=== PATIENT | female | born 1960 | race Caucasian/White ===

== ENCOUNTER 2020-03-07 12:31 | Emergency (ER) | payer BC, SELFPAY ==
--- NOTE | ~2020-03-07 | XR_ITS ---
XR foot RT min 3V DATE: 03/07/2020 12:54 INDICATION: Injury yesterday. Right foot pain. TECHNIQUE: 4 views COMPARISON: None FINDINGS: There is a thin linear cortical avulsion fracture from the distal lateral aspect of the leon caneus, with overlying soft tissue swelling. No other fracture or dislocation, periosteal reaction or bone destruction is detected. Plantar calcaneal enthesopathy. IMPRESSION: Linear cortical avulsion fracture from the distal lateral aspect of the calcaneus with ov erlying soft tissue swelling Plantar calcaneal enthesopathy Reviewed, dictated and finalized at location A. IMPRESSION: Linear cortical avulsion fracture from the distal lateral aspect of the calcaneus with overlying soft tissue swelling Plantar calcaneal enthesopathy
[2020-03-07 12:43] VITALS: BP 136/63; PULSE 85; RESP 16; TEMP 36.8; O2SAT 98
--- NOTE | 2020-03-07 12:43 | ED.LOWEXIN ---
HPI - Extremity Injury (Lower) General Chief Complaint: Extremity Injury, Lower Stated Complaint: injury right foot Time Seen by Provider: 03/07/20 12:43 Source: patient and RN notes reviewed History of Present Illness HPI Narrative: Patient is a 60-year-old female who presents the urgent care with complaints of right foot pain and swelling. Patient states that yesterday she fell down some steps, landing on the lateral aspect of the right foot. Patient states she has elevated the foot and used ice. Patient has been using her at home crutches to avoid weightbearing activity. Denies any other injuries or hitting her head during the incident. No other acute complaints. No acute distress noted. Patient read the plan of care. Related Data Allergies Allergy/AdvReac Type Severity Reaction Status Date / Time lisinopril AdvReac Mild Cough Verified 08/21/19 16:55 Review of Systems Review of Systems: Narrative: CONSTITUTIONAL: Denies fever, chills, or sweats. EYES: Denies visual changes, redness, or discharge. ENT: Denies rhinorrhea, congestion, sore throat, or otalgia. CARDIOVASCULAR: Denies chest pain, palpitations, or edema. RESPIRATORY: Denies cough or dyspnea. GASTROINTESTINAL: Denies abdominal pain, nausea, vomiting, or diarrhea. GENITOURINARY: Denies dysuria or hematuria. SKIN: Denies rash or itching. MUSCULOSKELETAL: Reports of right foot pain and swelling NEUROLOGIC: Denies headache, numbness, or weakness. All other systems reviewed are negative, except as documented in HPI. [facility] Past Medical History Medical History (Updated 03/07/20 @ 13:34 by ANDRES Smith) Benign hypertension without CHF Cardiac murmur Tobacco use disorder Family History Family History (Updated 12/10/18 @ 15:45 by DOCTOR UNKNOWN) Mother Patient's mother is in good health Father Patient's father is , Onset Age: 42 Sibling Patient's sister is in good health Patient's brother is in good health Social History Social History (Updated 08/21/19 @ 16:56 by Eva Whalen) Years smoked: 40 Smoking status: Heavy tobacco smoker Tobacco type: cigarettes Second hand tobacco smoke exposure: Yes Alcohol intake: current Drinks per week: 21 Substance use: never Substance use type: does not use Gender identity (if verbalized by the patient): Female Comments At the time of my signature, I reviewed and agree with the nursing past medical, surgical, social, and family history. There is no relevant family history pertinent to the patient complaint. Exam Narrative: Exam Narrative: GENERAL: This is a well-nourished, well-developed patient, in no apparent distress. HEAD: normocephalic, atraumatic. EYES: PERRL. Sclera clear/white. Vision is grossly intact. EARS: External ears normal NOSE: External nose normal with no obvious nasal discharge, nares without redness, no rhinorrhea. THROAT: Mucous membranes moist NECK: Neck supple SKIN: warm, intact with no suspicious lesions or rash, good texture and turgor. NEURO: awake, alert, and oriented to person, place and time. There were no obvious focal neurologic abnormalities. EXTREMITIES: Moderate edema and ecchymosis noted to the lateral dorsal aspect of the right foot with mild to moderate tenderness over the lateral right foot, anterior calcaneal region. Positive strong right pedal pulse with capillary refill less than 2 seconds. Course Vital Signs Vital signs: Vital Signs Temperature 98.3 F 03/07/20 12:43 Pulse Rate 85 03/07/20 12:43 Respiratory Rate 16 03/07/20 12:43 Blood Pressure 136/63 03/07/20 12:43 Pulse Oximetry 98 03/07/20 12:43 Temperature 98.3 F 03/07/20 12:43 Pulse Rate 85 03/07/20 12:43 Respiratory Rate 16 03/07/20 12:43 Blood Pressure 136/63 03/07/20 12:43 Pulse Oximetry 98 03/07/20 12:43 Reviewed Procedures Orthopedic Splinting/Casting Injury #1: Side: right OCL: short leg
== END 2020-03-07 13:52 | disposition home or self-care (01) ==
PROVIDERS: Emergency Provider Nurse Practitioner Family
DX: S92.001A Unspecified fracture of right calcaneus, initial encounter for closed fracture (principal); I10 Essential (primary) hypertension; F17.210 Nicotine dependence, cigarettes, uncomplicated; W10.9XXA Fall (on) (from) unspecified stairs and steps, initial encounter
CPT/HCPCS: 29515; 73630; 99214; G0463

== ENCOUNTER 2020-04-19 13:10 | Outpatient (CLI) | payer BC, SELFPAY ==
--- NOTE | ~2020-04-19 | MM_ITS ---
EXAMINATION: MM diagnostic cristiano BI w paulie HISTORY: Follow-up left breast mass TECHNIQUE: Additional 3-D tomosynthesis images of the breasts were performed and synthetic 2-D images were generated. CAD analysis was submitted and interpreted. COMPARISON: 12/17/2018 BREAST PARENCHYMAL COMPOSITION: Breast composed of scattered areas of fibroglandular density FINDINGS: The breasts are stable. No new masses, calcifications or architectural distortion. Left jesus ast asymmetry in the upper outer quadrant of the left breast is stable. IMPRESSION: 1. Stable asymmetry left breast. Follow-up left breast ultrasound recommended to assess stability. BI-RADS CATEGORY 0 - INCOMPLETE STUDY, NEED ADDITIONAL IMAGING EVALUATION. Reviewed, dictated and finalized at location A. IMPRESSION: 1. Stable asymmetry left breast. Follow-up left breast ultrasound recommended t o assess stability. BI-RADS CATEGORY 0 - INCOMPLETE STUDY, NEED ADDITIONAL IMAGING EVALUATION.
== END 2020-04-19 13:11 | disposition home or self-care (01) ==
LOC: ANHIMG 13:13
PROVIDERS: PCP Family Medicine; Visit Provider Family Medicine
DX: R92.8 Other abnormal and inconclusive findings on diagnostic imaging of breast (principal)
CPT/HCPCS: 77062; 77066; G0279

== ENCOUNTER 2020-04-20 14:02 | Outpatient (CLI) | payer BC, SELFPAY ==
--- NOTE | ~2020-04-20 | US_ITS ---
EXAMINATION: US art doppler w press LE JORGITO DATE: 04/20/2020 15:05 INDICATION: Peripheral vascular disease, unspecified TECHNIQUE: Segmental pressures and plethysmographic and Doppler waveforms of the brachial and lower e xtremity arteries were obtained. COMPARISON: None. FINDINGS: Right and left brachial artery pressures of 126 mm Hg and 136 mm Hg, respectively, are concordant (no rmal difference <= 30 mmHg). The right high-thigh pressure index is 0.33 (normal > 1.2). The right ankle-brachial index (ERIKA) is 0 .27 (normal >= 0.9-1.0). The right great toe-brachial index (TBI) is 0.46 (normal >= 0.65). The right lower extremity segmental pressure gradients are normal (normal gradients <= 20-30 mmHg between stacy cent levels on the same leg or the same levels on the two legs). Arterial Doppler waveforms are bipha sic. The left high-thigh pressure index is 0.32. The left ERIKA is 0.26. The left TBI is 0.51. The left lowe r extremity segmental pressure gradients are normal. Arterial Doppler waveforms are biphasic. IMPRESSION: 1. Severe arterial occlusive disease. Reviewed, dictated and finalized at location A.
== END 2020-04-20 14:03 | disposition home or self-care (01) ==
LOC: ANHIMG 14:03
PROVIDERS: PCP Family Medicine; Visit Provider Family Medicine
DX: I73.9 Peripheral vascular disease, unspecified (principal); M48.062 Spinal stenosis, lumbar region with neurogenic claudication
CPT/HCPCS: 93923

== ENCOUNTER → 2022-06-08 11:03 | Outpatient (CLI) | payer BC, SELFPAY ==
--- NOTE | ~2022-06-08 | DEXA_ITS ---
Bone Density Report Name: KORINA VELASQUEZ Age: 62 Sex: Female Ethnicity: White Date of : 1960 Indication: postmenopausal; screening for osteoporosis; Referring Provider: DOV CUEVAS Study: Bone densitometry was performed. Exam Date: June 08, 2022 Accession number: [id number] Bone Density: Region BMD T-score Z-score Classification AP Spine (L1-L4) 0.964 -0.8 0.9 Normal Femoral Neck (Left) 0.682 -1.5 -0.1 Osteopenia Total Hip (Left) 0.820 -1.0 0.1 Normal Femoral Neck (Right) 0.851 0.0 1.4 Normal Total Hip (Right) 0.847 -0.8 0.3 Normal Total Hip Mean 0.834 -0.9 0.2 Normal World Health Organization criteria for BMD impression classify patients as: Normal (T-score at or above -1.0), Osteopenia (T-score between -1.0 and -2.5), or Osteoporosis (T-score at or below -2.5). 10-year Fracture Risk(1): Major Osteoporotic Fracture 10% Hip Fracture 1.3% Reported Risk Factors: [place] (), Neck BMD=0.682, BMI=26.7, alcohol use (1) FRAX(R) Version 3.08. Fracture probability calculated for an untreated patient. Fracture probability may be lower if the patient has received treatment. Clinical Information Provided by Patient: Has 3 or more alcoholic drinks per day Patient maximum height was 64.0 Menopause Age: 49 Drinks caffeinated beverages Onset of menses at age 13 Number of children 2 Impression: The patient has low bone mass, based on the Left Femoral Neck T-score. The patient has an estimated ten-year risk of hip fracture of 1.3% and an estimated ten-year risk of major fracture of 10%, based on the WHO FRAX algorithm. The patient has risk factors, including: excessive alcohol use. Discussion: BONE DENSITY IS LOW AT ONE OR MORE SKELETAL SITES. This patient's lowest T-score is low at one or more skeletal sites. It meets the World Health Organization's (WHO) criteria for ?low bone mass? (T-score between -1.0 and -2.5). The patient's 10-year risk of fracture as calculated by FRAX is less than the threshold where pharmacological therapy is recommended by the National Osteoporosis Foundation (NOF). However, all treatment decisions require clinical judgment and consideration of individual patient factors, including patient preferences, comorbidities, previous drug use, risk factors not captured in the FRAX model (e.g., frailty, falls, vitamin D deficiency, increased bone turnover, interval significant decline in bone density) and possible under or overestimation of fracture risk by FRAX. The patient should follow a healthful lifestyle (good nutrition with adequate calcium and vitamin D, and appropriate weight-bearing exercise). Follow-Up: Consider repeating this study in 2 to 3 years to reassess this patient's status, or sooner if there is some new clinical indication. Reported by
--- NOTE | ~2022-06-08 | MM_ITS ---
EXAMINATION: MM screening cristiano BI w paulie HISTORY: Screening mammogram TECHNIQUE: Craniocaudal and mediolateral oblique 3-D tomosynthesis images were obtained and synthetic 2-D images were generated. CAD analysis was submitted and interpreted. COMPARISON: 04/19/2020 bilateral diagnostic mammography 07/07/2019 limited left breast ultrasound 01/01/2019 diagnostic left mammogram and limited left breast ultrasound 12/17/2018 bilateral screening mammogram BREAST PARENCHYMAL COMPOSITION: There are scattered areas of fibroglandular density. FINDINGS: A biopsy marker on the right; history of prior benign right breast biopsy. There is no evid ence of suspicious mass, calcification, or architectural distortion to suggest malignancy in either b reast. There has been no suspicious interval change. IMPRESSION: 1. No mammographic evidence of malignancy. 2. Recommend routine screening mammography in one year. BI-RADS Category 1: Negative Reviewed, dictated and finalized at location A.
== END ==
PROVIDERS: PCP Family Medicine; Visit Provider Nurse Practitioner Gerontology
DX: Z12.31 Encounter for screening mammogram for malignant neoplasm of breast (principal); Z78.0 Asymptomatic menopausal state; M85.852 Other specified disorders of bone density and structure, left thigh
CPT/HCPCS: 77063; 77067; 77080

== ENCOUNTER 2023-06-28 08:29 | Outpatient (CLI) | payer BC, SELFPAY ==
--- NOTE | ~2023-06-28 | CT_ITS ---
EXAMINATION: CT lung screening DATE: 06/28/2023 08:52 INDICATION: Personal history of tobacco dependence TECHNIQUE: Computed tomography (CT) of the chest was performed without intravenous contrast. The dose -length product was 74.66 mGy-cm. Automated exposure control and iterative reconstruction technique w ere employed. COMPARISON: None FINDINGS: Heart size is normal. No significant pleural or pericardial effusion. No thoracic lymphaden opathy. Upper abdomen is unremarkable. No acute osseous abnormality. Calcified granuloma right upper lobe. There are a few small 1-2 mm nodules in the upper lobes, likely benign. No focal airspace conso lidation. No pneumothorax. No endobronchial lesions. IMPRESSION: 1. Lung-RADS category 2: Benign appearance or behavior. Continue annual screening with noncontrast lo w-dose chest CT in 12 months. Reviewed, dictated and finalized at location L. IMPRESSION: 1. Lung-RADS category 2: Benign appearance or behavior. Continue annual screeni ng with noncontrast low-dose chest CT in 12 months.
== END 2023-06-28 08:30 | disposition home or self-care (01) ==
PROVIDERS: PCP Family Medicine; Visit Provider Physician Assistant
DX: Z12.2 Encounter for screening for malignant neoplasm of respiratory organs (principal); Z87.891 Personal history of nicotine dependence
CPT/HCPCS: 71271

== ENCOUNTER → 2023-09-13 10:25 | Outpatient (CLI) | payer BC, SELFPAY ==
--- NOTE | ~2023-09-13 | MM_ITS ---
EXAMINATION: MM screening cristiano BI w paulie HISTORY: Screening TECHNIQUE: Craniocaudal and mediolateral oblique 3-D tomosynthesis images were obtained and synthetic 2-D images were generated. CAD analysis was submitted and interpreted. COMPARISON: Comparison to multiple prior studies sequentially, with oldest reviewed study dated 12/17. BREAST PARENCHYMAL COMPOSITION: Breast composed of scattered areas of fibroglandular density FINDINGS: There is no evidence of suspicious mass, calcification, or architectural distortion to sugg est malignancy in either breast. There has been no suspicious interval change. IMPRESSION: 1. No mammographic evidence of malignancy. 2. Recommend routine screening mammography in one year. BI-RADS Category 1: Negative Reviewed, dictated and finalized at location A. 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
== END ==
PROVIDERS: PCP Family Medicine; Visit Provider Physician Assistant
DX: Z12.31 Encounter for screening mammogram for malignant neoplasm of breast (principal)
CPT/HCPCS: 77063; 77067

== ENCOUNTER 2024-12-08 14:19 | Outpatient (CLI) | payer OTHER, SELFPAY ==
--- NOTE | ~2024-12-08 | CT_ITS ---
EXAMINATION:CT lung screening DATE: 12/08/2024 14:41 INDICATION: Personal history of nicotine dependence. Smoker who quit 4 years ago with 40 pack year hi story. TECHNIQUE: Computed tomography (CT) of the chest was performed without intravenous contrast. Automate d exposure control and iterative reconstruction technique were employed. The dose-length product (DLP ) was 78.75 mGy-cm. COMPARISON: Chest CT 06/28/2023 FINDINGS: There is mild emphysema. There is mild scarring in paraspinal right lower lobe. A calcified right lung nodule is consistent with old granulomatous disease. No pleural effusion. The heart size is normal. There are coronary artery calcifications. No pericardial effusion. There is diffuse hepati c steatosis. There is mild thoracic spondylosis. IMPRESSION: 1. Lung-RADS category 2: Benign appearance or behavior. Continue annual screening with noncontrast lo w-dose chest CT in 12 months. Reviewed, dictated and finalized at location B. IMPRESSION: 1. Lung-RADS category 2: Benign appearance or behavior. Continue annual screeni ng with noncontrast low-dose chest CT in 12 months.
--- OUTSIDE RECORDS SUMMARY | 2024-12-08 16:42 | XMS_ITS | Referral Summary ---
Author Organization [facility] [address] Address [address] [place] [address] Care Team Providers Care Engineer Process Name Role Phone Tori Bolom MD Primary Care Provider Allergies No known active allergies Medications losartan (COZAAR) 50 mg tablet Take 1 tablet by mouth daily 03/01/2020 Active rosuvastatin (CRESTOR) 5 mg tablet Take 5 mg by mouth daily Active clopidogreL (PLAVIX) 75 mg tablet Take 1 tablet (75 mg total) by mouth daily 30 tablet 11 05/06/2020 Active aspirin 325 mg tablet Take 1 tablet (325 mg total) by mouth daily 30 tablet 11 05/06/2020 Active Active Problems Problem Noted Date Diagnosed Date PVD (peripheral vascular disease) 05/03/2020 Overview (05/03/2020): Added automatically from request for surgery [id number] Social History Tobacco Use Types Packs/Day Years Used Date Smoking Tobacco: Every Day Cigarettes Smokeless Tobacco: Never Tobacco Cessation:Ready to Q uit: Yes; Counseling Given: Yes Alcohol Use Standard Drinks/Week Comments Yes 0 (1 standard drink = 0.6 oz pur e alcohol) occassional Personal Safety Answer Date Recorded Getting School Help Needed Not on file 12/15 Comments No Sex and Gender Information Value Date Recorded Sex Assigned at Not on file 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 Gender Identity Not on file Sexual Orientation Not on file Last Filed Vital Signs Vital Sign Reading Time Taken Comments Blood Pressure 111/61 05/06/2020 5:25 PM CDT Pulse 81 05/06/2020 5:25 PM CDT Temperature 36.7 C (98 F) 05/06/2020 7:38 AM CDT Respiratory Rate 13 05/06/2020 5:25 PM CDT Oxygen Saturation 96% 05/06/2020 5:25 PM CDT Inhaled Oxygen Concentration - - Weight 63.3 kg (139 lb 8 oz) 05/06/2020 7:38 AM CDT Height 162.6 cm (5' 4 ) 05/06/2020 7:38 AM CDT Body Mass Index 23.95 05/06/2020 7:38 AM CDT Plan of Treatment Not on file Medical Devices Implanted Type Area Scheduling Coordinator Device Identifier Shelf Expiration Date Model / Serial / Lot [employer] Peripheral Vascular [id number] Lifestream 10mm 38mm 80cm Balloon Expandable Low Profile Cover - [id number] Implanted:Qty: 1 on 05/06/2020 by Justin Mills MD at [facility] [employer] 05/31/2020 [id number] / / [id number] Insurance [facility] Advance Directives For more information, please contact: [phone] * Full Code (Latest Code Status on File) Date Activated Date Inactivated Comments 05/06/2020 12:13 PM 05/06/2020 11:44 PM Care Teams Engineer Process Relationship Specialty Start Date End Date Tori Bloom MD [address] [facility] [address] [place] [address] PCP - General Family Medicine 08/26/19
--- OUTSIDE RECORDS SUMMARY | 2024-12-08 16:42 | XMS_ITS | Clinical Summary ---
Author Organization [facility] [address] Address [address] [place] [address] Care Team Providers Care Fine Patcher Name Role Phone Tori Bloom MD Primary Care Provider Allergies No known [...] (05/03/2020): Added automatically from request for surgery [id number] Surgical History Surgery Date Site/Laterality Comments APPENDECTOMY Medical History Medical History Date Comments Numbness in feet Peripheral vascular disease Hypertension Family History Medical History Relation Name Comments No Known Problems Father No Known Problems Mother Relation Name Status Comments Father Mother Alive Social History Tobacco Use Types Packs/Day Years [...] on file 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 * Full Code (Latest Code Status on File) Date Activated Date Inactivated Comments 05/06/2020 12:13 PM 05/06/2020 11:44 PM Care Teams Fine Patcher Relationship Specialty Start Date End Date Tori Bloom MD [address] [facility] [address] [facility] [address] [place] [id number] PCP - General Family Medicine 08/26/19
--- OUTSIDE RECORDS SUMMARY | 2024-12-08 16:42 | XMS_ITS | Referral Summary ---
Author Organization [facility] Address [address] [place] [address] Care Team Providers Care Agriculture Research Director Name Role Phone Roel Manzano MD Unavailable [phone] Pcp, Lyndsey Muñoz Primary Care Provider Unav ailable Source Comments [facility],non-owned Affiliates and Associated Physician Practices is amultiple site organization consisting of ambulatory clinics and hospital sitesin [place], [place], [place] and [place]. This disclosure is being madepursuant to the Care Everywhere program and may not contain all information available regarding this patient. Last updated 18.[facility] Allergies No known active allergies Medications * Be aware that medications may not be up to date on this document. Alwaysverify current medications with the patient. Medication Sig Dispensed Refills Start Date End Date Status amoxicillin (AMOXIL) 500 MG capsule Take 1 Cap by mouth 3 times daily 30 Cap 04/19/2017 Active Active Problems No known active problems Resolved Problems Problem Noted Date Diagnosed Date Resolved Date Screening for cervical cancer 02/09/2009 03/11/2012 Overview (02/09/2009): 06/15/08 WNL Other screening mammogram 02/09/2009 Overview (02/09/2009): 07/24/08 NEG Social History Tobacco Use Types Packs/Day Years Used Date Smoking Tobacco: Every Day Cigarettes 1 30 Tobacco Cessation:Ready to Q uit: No; Counseling Given: Yes Alcohol Use Standard Drinks/Week Comments Yes 10 (1 standard drink = 0.6 oz pu re alcohol) weekends Sex and Gender Information Value Date Recorded Sex Assigned at Not on file Gender Identity Not on file Sexual Orientation Not on file Last Filed Vital Signs Vital Sign Reading Time Taken Comments Blood Pressure 144/84 04/19/2017 2:04 PM CDT Pulse 68 04/19/2017 2:04 PM CDT Temperature 36.8 C (98.3 F) 04/19/2017 2:04 PM CDT Respiratory Rate - - Oxygen Saturation 97% 01/17/2010 11:21 AM CDT Inhaled Oxygen Concentration - - Weight 62.6 kg (138 lb) 04/19/2017 2:04 PM CDT Height 165.1 cm (5' 5 ) 04/19/2017 2:04 PM CDT Body Mass Index 22.96 04/19/2017 2:04 PM CDT Plan of Treatment Not on file Goals Goal Patient Goal Type Associated Problems Recent Progress Patient-Stated? Author Quit smoking / using tobacco Lifestyle Not on track(2016 2:06 PM CDT) Alicja Schaefer MA Note: Where can I go for support and more information? There are many ways to quit smoking. Some may work better for you than others. Your caregiver can help you find the best plan to quit. Smokefree.gov Phone: 0-944-WVGS-NOW ( ) www.smokefree.gov [employer] Phone: Phone: www.lung.org Instant Rewards of Quitting When you smoke, the chemicals in tobacco reach your lungs quickly every time you inhale. Your blood then carries the toxins to every organ in your body. There is no safe amount of cigarette smoke. After you quit, your body begins to heal within 20 minutes of your last cigarette, and the nicotine leaves your body within three days. As your body starts to repair itself, you may feel worse instead of better. Withdrawal can be difficult, but this is a sign that your body is healing. -Taken from www.Smokefree.gov Long?term Rewards of Quitting Tobacco use in the [place] causes about 443,000 deaths each year, or nearly one in every five deaths. Quitting can help you add years to your life. Smokers on average 13 years earlier than non-smokers. Take control of your health by quitting (and staying quit). Over time, you will greatly lower your risk of from lung cancer and other diseases, such as: Heart disease Stroke Chronic bronchitis Emphysema At least 13 other kinds of cancer -Taken from www.Smokefree.gov Tips if you slip Don't be discouraged if you slip up and smoke one or two cigarettes. One cigarette is better than an entire pack. But don't use it as excuse to start smoking again because it's a slippery slope. Don't be too hard on yourself. One slip up doesn't make you a failure. It doesn't mean you can't quit for good. Don't be too easy on yourself either. If you slip up don't say Well I've blown it. I might as well smoke the rest of this pack . It's important to get back on the non-smoking track right away. Remember your goal is no cigarettes--not even one puff. Feel good about all the time you went without smoking. Try to learn how to make your coping skills better. Identify the trigger. Exactly what was it that made you smoke? Be aware of that trigger. Decide now how you will cope with it when it comes up again. Learn from your experience. What has helped you the most to keep from smoking? Make sure to do that on your next try. Are you using a medicine to help you quit? Don't stop using your medicine after only one or two cigarettes. Stay with it. It will help you get back on track. See your provider or another health professional. He or she can help motivate you to quit smoking. -Taken from www.smokefree.gov Procedures Procedure Name Priority Date/Time Associated Diagnosis Comments PAP IG LB CT+GC+HPV HR Routine 03/11/2012 4:55 PM CDT Screen for STD (sexually transmitted disease) Routine gynecological examination Special screening examination for other specified chlamydial diseases Special screening examination for human papillomavirus (HPV) from Last 3 Months or Most Recently Relevant to Health Maintenance Results * PAP SMEAR IG CT+GC HPV HR (PO REF LAB) (03/11/2012 4:55 PM CDT) Diagnosis [facility] INSURANCE BILL Comment:NEGATIVE FOR INTRAEP ITHELIAL LESION AND MALIGNANCY. Specimen Adequacy [facility] INSURANCE BILL Comment: Satisfactory for evaluation. Endocervical and/or squamous metaplastic cells (endocervical component) are present. Clinician Provided ICD9 [facility] INSURANCE BILL Comment: V70.0 ; Routine general medical examination at health care facility V74.5 ; Screening examination for venereal disease 625.9 ; Unspecified symptom associated with female genital organs V72.31 ; Routine gynecological examination V73.88 ; Special screening examination for other specified chlamydial diseases V73.81 ; Special screening examination, human papillomavirus [HPV] Performed by [facility] INSURANCE BILL Comment:Emily Hatfield, Cytot echnologist (ASCP) Comment . [facility] INSURANCE BILL Note [facility] INSURANCE BILL Comment: The Pap smear is a screening test designed to aid in the detection of premalignant and malignant conditions of the uterine cervix. It is not a diagnostic procedure and should not be used as the sole means of detecting cervical cancer. Both false-positive and false-negative reports do occur. . IGLBP CPT Code Automation [facility] INSURANCE BILL Comment: This liquid based ThinPrep(R) pap test was screened with the use of an image guided system. Human papillomavirus High Risk Negative Negative [facility] INSURANCE BILL Comment: This high-risk HPV test detects thirteen high-risk types (16/18/31/33/35/39/45/51/52/56/58/59/68) without differentiation. . Chlamydia trachomatis BRAD Negative Negative [facility] INSURANCE BILL GC DNA Probe Negative Negative [facility] INSURANCE BILL MICROSCOPIC CYTOLOGIC EXAMINATION OF SMEAR OF SPECIMEN FROM FEMALE GENITAL TRACT PREPARED USING PAPANICOLAOU TECHNIQUE / Unknown 03/11/2012 4:55 PM CDT 03/12/2012 1:09 AM CDT Narrative [facility] INSURANCE BILL - 03/14/2012 8:06 PM CDT No. of containers..01 CYTYC Thin Prep Vial Resulting Agency Comment [address] [phone] Claribel Wagner APRN-[employer] LAB - PATHOLOGY/C YTOLOGY ORDERABLES [facility] INSURANCE BILL from Last 3 Months or Most Recently Relevant to Health Maintenance Advance Directives Documents on File Type Date Recorded Patient Grievance And Appeals Specialist Expl anation Adv Directive/Living Will/POA 11/22/2009 Adv Directive/Living Will/POA 11/22/2009 Care Teams Agriculture Research Director Relationship Specialty Start [place] [id number] [id number] PCP - OBDON 02/09/09 PcpLyndsey PCP - General 04/27/23
--- OUTSIDE RECORDS SUMMARY | 2024-12-08 16:42 | XMS_ITS | CONTINUITY OF CARE DOCUMENT ---
Author Name cheryl luna Address Unknown Organization [facility] Address [address] [facility] [address] [place] [address] Phone [phone] Care Team Providers [employer] Coordinator Name Role Phone Lina ROBERTS, Justin Unavailable [phone] SOLE ALCARAZ MD Unavailable [phone] SOLE ALCARAZ MD Unavailable [phone] PROBLEMS Condition Status Date Provider Notes Family History of CVA or Stroke: active Jose Mills MD Cardiology examination active Justin Mills MD PVD: Aorto/Iliac stenting active Justin monson MD Tobacco abuse - quit active Justin Mills MD HTN essential active Justin Mills MD Leg pain active Justin Mills MD Hyperlipidemia active uJstin Mills MD Chest pain active Justin Mills MD ENCOUNTERS Date Type Provider Location Encounter Diag nosis - In-person encounter Office Visit Justin Mills MD [facility] Tobacco abuse - quitChest pain - In-person encounter Office Visit Justin Mills MD [facility] Cardiology examination - In-person encounter Office [place] [facility] - [place]person encounter Office Visit Justin Mills MD [facility] PVD: Aorto/Iliac stentingHyperlipidemia - In-person encounter Office Visit Justin Mills MD [facility] Cardiology examination - In-person encounter Office Visit Justin Mills MD [facility] - In-person encounter Office Visit Justin Mills MD [facility] - In-person encounter Office Visit Justin Mills MD [facility] Family History of CVA or Stroke:PVD: Aorto/Iliac stentingTobacco abuse - quitHTN essentialLeg pain VITAL SIGNS Date Observation Value Provider Body Mass Index (Ratio) 27.29 kg/m2 Tr Mills MD blood pressure, diastolic 83 mm[Hg] Payal Willis blood pressure, systolic 146 mm[Hg] Duyen Willis oxygen saturation, oximetry 95 % Faby Willis [facility] E[facility]M 12 [facility] weight E&M 159 [lb_av] [facility] height E&M 64 [in_i] [facility] blood pressure, cuff size regular An yudelka Willis Body Mass Index (Ratio) 26.09 kg/m2 Tr Mills MD blood pressure, cuff size regular Ja carol blood pressure, diastolic 86 mm[Hg] Ja rret blood pressure, systolic 146 mm[Hg] Jose beltre pulse rate 77 /min Mando tayla respiratory rate E&M 12 /min Mando oxygen saturation, oximetry 97 % Mando weight E&M 152 [lb_av] Mando y height E&M 64 [in_i] Mando Body Mass Index (Ratio) 25.92 kg/m2 Tr Mills MD blood pressure, diastolic 79 mm[Hg] Nava [facility] blood pressure, systolic 165 mm[Hg] Ana [facility]Logic pulse rate 72 /min Mando blood pressure, cuff size regular Ja rret blood pressure, diastolic 79 mm[Hg] Ja rret blood pressure, systolic 165 mm[Hg] Jose beltre oxygen saturation, oximetry 98 % Mando respiratory rate E&M 12 /min Mando weight E&M 151 [lb_av] Mando height E&M 64 [in_i] Mando y Body Mass Index (Ratio) 26.95 kg/m2 Tr Mills MD blood pressure, diastolic 70 mm[Hg] Ramon Carvajal blood pressure, systolic 140 mm[Hg] Marilyn Carvajal blood pressure, cuff size regular Cy cally Carvajal pulse rate 79 /min Zainab Rodrigezbel rudi oxygen saturation, oximetry 97 % Zainab Carvajal respiratory rate E&M 16 /min Zainab Carvajal weight E&M 157 [lb_av] Zainab Eliabel l height E&M 64 [in_i] Zainab Campbel l Body Mass Index (Ratio) 25.40 kg/m2 Tr Mills MD blood pressure, cuff size regular Ke rri Deshawnueneastrid blood pressure, diastolic 72 mm[Hg] Ke rri Deshawnueneastrid blood pressure, systolic 148 mm[Hg] Aguila Shinelder oxygen saturation, oximetry 98 % Nany Shinelder respiratory rate E&M 18 /min Nany Ballard garynaseemnfelder pulse rate 84 /min Nany Shine lder weight E&M 148 [lb_av] Nany Shine lder height E&M 64 [in_i] Nany Chapmannemeetae er Body Mass Index (Ratio) 24.71 kg/m2 Tr Mills MD blood pressure, diastolic 76 mm[Hg] Cy cally Carvajal blood pressure, systolic 126 mm[Hg] Marilyn kalia Carvajal blood pressure, cuff size regular Cy cally Carvajal pulse rate 60 /min Zainab grijalva respiratory rate E&M 16 /min Zainab Carvajal oxygen saturation, oximetry 97 % Zainab Carvajal weight E&M 144 [lb_av] Zainab Campbel l height E&M 64 [in_i] Zainab Campbel l Body Mass Index (Ratio) 24.58 kg/m2 Tr Mills MD blood pressure, diastolic 60 mm[Hg] Shahnaz Michelle blood pressure, systolic 110 mm[Hg] Dorie Michelle oxygen saturation, oximetry 97 % Chip Michelle respiratory rate E&M 18 /min Sejal Michelle pulse rate 73 /min Chip moreno weight E&M 143.2 [lb_av] Chip drew height E&M 64 [in_i] Chip Higuerae tiffanie Body Mass Index (Ratio) 23.86 kg/m2 Tr Mills MD blood pressure, diastolic 72 mm[Hg] Cy cally Carvajal blood pressure, systolic 120 mm[Hg] Marilyn Carvajal blood pressure, cuff size regular Cy nthidaniel Carvajal oxygen saturation, oximetry 97 % Zainab Carvajal pulse rate 85 /min Zainab grijalva respiratory rate E&M 16 /min Zainab Carvajal height E&M 64 [in_i] Zainab grijalva weight E&M 139 [lb_av] Zainab grijalva ALLERGIES No Known Drug Allergies RESULTS Date Observation Value Provider Reference Range Interpretation Location C-reactive protein, by highly sensitive test 2.4 mg/L [facility] <1.0 High LDL Size 216.2 Angstrom [facility] >222.9 Low LDL particle concentration (lipoprotein panel), risk categories correspond to NCEP categories for LDL cholesterol (on a percentile equivalent basis) 1175 nmol/L [facility] <1138 High cholesterol, non-HDL, total 75 MG/DL (CALC) [facility] <130 cholesterol/HDL ratio, serum, percent 2.0 calc [facility] <5.0 LDL cholesterol, serum 59 MG/DL (CALC) [facility] <100 triglyceride, serum, fasting 84 mg/dL [facility] <150 HDL cholesterol, serum 76 mg/dL [facility] >49 cholesterol, serum 151 mg/dL [facility] <200 C-reactive protein, by highly sensitive test 3.6 mg/L [facility] <1.0 High LDL Size 220.5 Angstrom [facility] >222.9 Low LDL particle concentration (lipoprotein panel), risk categories correspond to NCEP categories for LDL cholesterol (on a percentile equivalent basis) 1608 nmol/L [facility] <1138 High cholesterol, non-HDL, total 81 MG/DL (CALC) [facility] <130 cholesterol/HDL ratio, serum, percent 2.0 calc [facility] <5.0 LDL cholesterol, serum 65 MG/DL (CALC) [facility] <100 triglyceride, serum, fasting 77 mg/dL [facility] <150 HDL cholesterol, serum 84 mg/dL [facility] >49 cholesterol, serum 165 mg/dL [facility] <200 alanine aminotransferase (SGPT), serum 22 1/L [facility] 6-29 Normal aspartate aminotransferase (SGOT), serum 16 1/L [facility] 10-35 Normal alkaline phosphatase, serum 52 1/L [facility] 37-153 Normal bilirubin, serum, total 0.2 mg/dL [facility] 0.2-1.2 Normal albumin/globulin ratio, serum 1.8 (calc) [facility] 1.0-2.5 Normal globulins, serum, total 2.4 G/DL (CALC) [facility] 1.9-3.7 Normal albumin, serum 4.3 g/dL [facility] 3.6-5.1 Normal protein, total, serum 6.7 g/dL [facility] 6.1-8.1 Normal calcium, serum 9.0 mg/dL [facility] 8.6-10.4 Normal carbon dioxide, venous blood 28 mmol/L [facility] 20-32 Normal chloride, serum 106 mmol/L [facility] 98-110 Normal potassium, serum 4.2 mmol/L [facility] 3.5-5.3 Normal sodium, serum 142 mmol/L [facility] 135-146 Normal urea nitrogen/creatinine ratio, serum SEE NOTE: (calc) [facility] 6-22 creatinine, serum 0.80 mg/dL [facility] 0.50-1.05 Normal urea nitrogen, blood 12 mg/dL [facility] 7-25 Normal blood glucose, random 91 mg/dL [facility] 65-99 Normal cholesterol, non-HDL, total 83 MG/DL (CALC) [facility] <130 Normal cholesterol/HDL ratio, serum, percent 2.1 (calc) [facility] <5.0 Normal LDL cholesterol, serum 66 MG/DL (CALC) [facility] Normal triglyceride, serum, fasting 91 mg/dL [facility] <150 Normal HDL cholesterol, serum 75 mg/dL [facility] > OR = 50 Normal cholesterol, serum 158 mg/dL [facility] <200 Normal hemoglobin A1C, blood, as % of total hemoglobin 5.5 % OF TOTAL HGB [facility] <5.7 Normal mean platelet volume 10.4 fL [facility] 7.5-12.5 Normal platelet count 348 THOUSAND/UL [facility] 140-400 Normal red blood cell distribution width 12.7 % [facility] 11.0-15.0 Normal mean corpuscular hemoglobin concentration, RBC 32.6 G/DL [facility] 32.0-36.0 Normal mean corpuscular hemoglobin, RBC 30.7 pg [facility] 27.0-33.0 Normal mean corpuscular volume, RBC 94.2 fL [facility] 80.0-100.0 Normal hematocrit, blood 39.0 % [facility] 35.0-45.0 Normal hemoglobin electrophoresis, blood 12.7 [facility] 11.7-15.5 Normal erythrocyte (RBC) count 4.14 MILLION/UL [facility] 3.80-5.10 Normal leukocyte (white blood cells) count, blood 6.4 THOUSAND/UL [facility] 3.8-10.8 Normal alanine aminotransferase (SGPT), serum 30 1/L [facility] 6-29 High aspartate aminotransferase (SGOT), serum 21 1/L [facility] 10-35 Normal alkaline phosphatase, serum 57 1/L [facility] 37-153 Normal bilirubin, serum, total 0.3 mg/dL [facility] 0.2-1.2 Normal albumin/globulin ratio, serum 1.7 (calc) [facility] 1.0-2.5 Normal globulins, serum, total 2.4 G/DL (CALC) [facility] 1.9-3.7 Normal albumin, serum 4.1 g/dL [facility] 3.6-5.1 Normal protein, total, serum 6.5 g/dL [facility] 6.1-8.1 Normal calcium, serum 9.0 mg/dL [facility] 8.6-10.4 Normal carbon dioxide, venous blood 27 mmol/L [facility] 20-32 Normal chloride, serum 107 mmol/L [facility] 98-110 Normal potassium, serum 4.4 mmol/L [facility] 3.5-5.3 Normal sodium, serum 142 mmol/L [facility] 135-146 Normal urea nitrogen/creatinine ratio, serum NOT APPLICABLE (calc) [facility] 6-22 Estimated Glomerular Filtration Rate (calc) 91 mL/min/{1.73_ m2} [facility] > OR = 60 Normal creatinine, serum 0.81 mg/dL [facility] 0.50-0.99 Normal urea nitrogen, blood 11 mg/dL [facility] 7-25 Normal blood glucose, random 90 mg/dL [facility] 65-99 Normal cholesterol, non-HDL, total 74 MG/DL (CALC) [facility] <130 Normal cholesterol/HDL ratio, serum, percent 2.1 (calc) [facility] <5.0 Normal LDL cholesterol, serum 55 MG/DL (CALC) [facility] Normal triglyceride, serum, fasting 111 mg/dL [facility] <150 Normal HDL cholesterol, serum 70 mg/dL [facility] > OR = 50 Normal cholesterol, serum 144 mg/dL [facility] <200 Normal mean platelet volume 10.1 fL [facility] 7.5-12.5 Normal platelet count 419 THOUSAND/UL [facility] 140-400 High red blood cell distribution width 12.6 % [facility] 11.0-15.0 Normal mean corpuscular hemoglobin concentration, RBC 33.8 G/DL [facility] 32.0-36.0 Normal mean corpuscular hemoglobin, RBC 31.1 pg [facility] 27.0-33.0 Normal mean corpuscular volume, RBC 92.0 fL [facility] 80.0-100.0 Normal hematocrit, blood 43.8 % [facility] 35.0-45.0 Normal hemoglobin electrophoresis, blood 14.8 [facility] 11.7-15.5 Normal erythrocyte (RBC) count 4.76 MILLION/UL [facility] 3.80-5.10 Normal leukocyte (white blood cells) count, blood 11.7 THOUSAND/UL [facility] 3.8-10.8 High alanine aminotransferase (SGPT), serum 22 1/L [facility] 6-29 Normal aspartate aminotransferase (SGOT), serum 15 1/L [facility] 10-35 Normal alkaline phosphatase, serum 67 1/L [facility] 37-153 Normal bilirubin, serum, total 0.4 mg/dL [facility] 0.2-1.2 Normal albumin/globulin ratio, serum 1.6 (calc) [facility] 1.0-2.5 Normal globulins, serum, total 2.9 G/DL (CALC) [facility] 1.9-3.7 Normal albumin, serum 4.7 g/dL [facility] 3.6-5.1 Normal protein, total, serum 7.6 g/dL [facility] 6.1-8.1 Normal calcium, serum 9.9 mg/dL [facility] 8.6-10.4 Normal carbon dioxide, venous blood 29 mmol/L [facility] 20-32 Normal chloride, serum 101 mmol/L [facility] 98-110 Normal potassium, serum 4.0 mmol/L [facility] 3.5-5.3 Normal sodium, serum 139 mmol/L [facility] 135-146 Normal urea nitrogen/creatinine ratio, serum NOT APPLICABLE (calc) [facility] 6-22 Estimated Glomerular Filtration Rate (calc) 103 mL/min/{1.73_ m2} [facility] > OR = 60 Normal creatinine, serum 0.73 mg/dL [facility] 0.50-0.99 Normal urea nitrogen, blood 14 mg/dL [facility] 7-25 Normal blood glucose, random 96 mg/dL [facility] 65-139 Normal cholesterol, non-HDL, total 149 MG/DL (CALC) [facility] <130 High cholesterol/HDL ratio, serum, percent 3.2 (calc) [facility] <5.0 Normal LDL cholesterol, serum 130 MG/DL (CALC) [facility] High triglyceride, serum, fasting 89 mg/dL [facility] <150 Normal HDL cholesterol, serum 67 mg/dL Link[facility] > OR = 50 Normal cholesterol, serum 216 mg/dL [facility] <200 High HISTORY OF MEDICATION USE Medication Status Instructions Dates Provider Indications Com ments ezetimibe 10 mg tablet active Take 1 tablet by mouth once a day 10/25 Nany Estes ezetimibe 10 mg tablet completed TAKE 1 TABLET BY MOUTH DAILY 10/13 - 10/25 Nany Estes LYRICA 25 MG ORAL CAPSULE completed Take one capsule three times a day 06/14 - 01/10 Zainab Carvajal clopidogrel 75 mg tablet active Take 1 tablet once a day 01/18 Dustin Araiza aspirin 325 mg tablet active Take 1 tab let once a day 01/18 Dustin Teet rosuvastatin 10 mg tablet active TAKE 1 TABLET BY MOUTH EVERY DAY AT BEDTIME 01/18 Justin Mills MD CILOSTAZOL 50 MG ORAL TABLET completed take 1 tab daily 04/29 - 05/12 Chip Michelle HYDROCHLOROTHIAZIDE 12.5 MG ORAL TABLET completed take 1 tab daily 04/29 - 05/12 Chip Michelle losartan 50 mg tablet active Take 1 tab let once a day 04/29 Zainab Carvajal SOCIAL HISTORY Date Observation Value Provider smoking, year quit 2019 Justin oreilly MD number of years as a smoker 40 a Justin Mills MD smoking history, tot al pack/day 1/2 PPD Justin Mills MD cigarette use yes Justin Mills M D smoking status Former smoker Justin Mills MD social history reviewed E&M revi ewed - no changes required Justin Mills MD social history E&M S moking History: Kerry galdamez is a former smoker. Justin Mills MD smoking status Former smoker Justin Mills MD social history E&M S moking History: Kerry galdamez is a former smoker. Justin Mills MD social history reviewed E&M revi ewed - no changes required Justin Mills MD smoking, year quit 2019 Justin oreilly MD number of years as a smoker 40 a Justin Mills MD smoking history, tot al pack/day 1/2 PPD Justin Mills MD cigarette use yes Justin Mills M D smoking status Former smoker Justin Mills MD social history E&M S moking History: P atdamari is a former smoker. Justin Mills MD social history reviewed E&M revi ewed - no changes required Justin Mills MD smoking, year quit 2019 Zainab Jada cheek number of years as a smoker 40 a Zainab Carvajal smoking history, tot al pack/day 1/2 PPD Zainab Wei cigarette use yes Zainab Leeann webb smoking status Former smoker Zainab Rodrigez raul social history E&M S moking History: P atdamari is a former smoker. Justin Mills MD social history reviewed E&M revi ewed - no changes required Justin Mills MD smoking, year quit 2019 Nany Lujan kumar number of years as a smoker 40 a Nany Hessprema smoking history, tot al pack/day 1/2 PPD Nany Hessprema cigarette use yes Nany Hesskashif rhodes smoking status Former smoker Nany Chapmancurt kocher smoking/tobacco cess ation, patient education and counseling yes Justin Mills MD smoking status Current every day smoker Janeth Mills MD social history E&M S moking History: P atdamari currently smokes every day. P atient has been counseled to quit. Justin Mills MD social history reviewed E&M revi ewed - no changes required Justin Mills MD number of years as a smoker 40 a Zainab Wei smoking history, tot al pack/day 1/2 PPD Zainabdaniel Carvajal cigarette use yes Zainab webb social history E&M S moking History: P atient currently smokes every day. P atient has been counseled to quit. Justin Mills MD social history reviewed E&M revi ewed - no changes required Justin Mills MD smoking/tobacco cess ation, patient education and counseling yes Chip Michelle number of years as a smoker 40 a Chip Michelle smoking history, tot al pack/day 1/2 PPD Chip Michelle cigarette use yes Chip drew smoking status Current every day smoker Peyton Michelle number of grandchildren Justin Mills MD U jasbir Mills MD social history E&M S moking History: Kerry galdamez currently smokes every day. P denice has been counseled to quit. Justin Mills MD social history reviewed E&M revi ewed - no changes required Justin Mills MD smoking/tobacco cess ation, patient education and counseling yes Justin Mills MD number of years as a smoker 40 a Zainab Carvajal smoking history, tot al pack/day 1/2 PPD Zainab Carvajal cigarette use yes Zainab Leeann webb smoking status Current every day smoker C gaviota Carvajal FAMILY HISTORY Family Member Condition Paternal Grandmother Family History of C VA or Stroke: INSURANCE PROVIDERS Payer name Policy type / Coverage type Katherine red libertarian ID AARP [facility] ADVANTAGE PLAN 2 (HMO-POS) Medicare [id number] ADVANCE DIRECTIVES Name Date DISCUSSED - NO DECISION MADE TREATMENT PLAN Date Name Performer [id number],C,F indings from last echo 1 . There is septal hypertrophy without outflow tract obstruction. Normal left ventricular systolic function. Normal left v entricular size. There is E to A wave reversal consistent with impaired LV relaxation. E/E': 5.0 Left ventricular ejection f raction is measured at 60 %. 2 . The left atrium is normal in size. Left atrial volume index is 16.3 LA volume is 28 mL. 3 . Normal appearing mitral valve leaflets. Mild mitral valve regurgitation. 4 . Aortic valve leaflets appear structurally normal. Velocities, as well as gradients across the aortic valve are normal. No e vidence of aortic insufficiency. Justin Mills MD [id number],C,Has stopped s moking Justin Mills MD [id number],C, B P today: 146/86 P rior BP: 165/79 (06/14/2023) Labs Reviewed: C reat: 0.80 (06/29/2023) C hol: 158 (06/29/2023) HDL: 75 (06/29/2023) LDL: 66 MG/DL (CALC) (06/29/2023) T (06/29/2023) Her updated medication list for this problem includes: Losartan 50 Mg Tablet (Losartan) ..... Take 1 tablet once a day Aspirin 325 Mg Tablet (Aspirin) ..... Take 1 tablet once a day Justin Mills MD [id number],C,T he patient is on a statin. Last LDL 66 Her updated medication list for this problem includes: Rosuvastatin 5 Mg Tablet (Rosuvastatin) ..... Take 1 tablet once a day Justin Mills MD [id number],C,D oing well, ERIKA showed no significant disease Justin Mills MD [id number],C,p aient is on a statin, doing well s/p AIF intervention W ill check ERIKA due to her leisons being 100% in AAA Justin Mills MD [id number],W, B P today: 165/79 P rior BP: 140/70 (01/10/2021) Labs Reviewed: C reat: 0.81 (02/01/2021) C hol: 144 (02/01/2021) HDL: 70 (02/01/2021) LDL: 55 MG/DL (CALC) (02/01/2021) T (02/01/2021) Her updated medication list for this problem includes: Losartan 50 Mg Tablet (Losartan) ..... Take 1 tablet once a day Aspirin 325 Mg Tablet (Aspirin) ..... Take 1 tablet once a day Justin Mills MD [id number],C,T he patient is on a statin H er updated medication list for this problem includes: Rosuvastatin 5 Mg Tablet (Rosuvastatin) ..... Take 1 tablet once a day Justin Mills MD [id number],C,S he has quit smoking cigarettes but uses a vaporizer Justin Mills MD Cardiology Justin Mills MD Cardiology: H er updated medication list for this problem includes: Losartan 50 Mg Tablet (Losartan) ..... Take 1 tablet once a day Aspirin 325 Mg Tablet (Aspirin) ..... Take 1 tablet once a day BP today: 146/83 P rior BP: 146/86 (07/13/2023) Labs Reviewed: C reat: 0.80 (06/29/2023) C hol: 158 (06/29/2023) HDL: 75 (06/29/2023) LDL: 66 MG/DL (CALC) (06/29/2023) T (06/29/2023) Justin Mills MD Cardiology: H er updated medication list for this problem includes: Rosuvastatin 5 Mg Tablet (Rosuvastatin) ..... Take 1 tablet once a day Justin Mills MD Cardiology:Atypical, will check echo Justin Mills MD Cardiology:Stable c ontinue medical therapy C heck labs Justin Mills MD Cardiology:Findings from last echo 1 . There is septal hypertrophy without outflow tract obstruction. Normal left ventricular systolic function. Normal left v entricular size. There is E to A wave reversal consistent with impaired LV relaxation. E/E': 5.0 Left ventricular ejection f raction is measured at 60 %. 2 . The left atrium is normal in size. Left atrial volume index is 16.3 LA volume is 28 mL. 3 . Normal appearing mitral valve leaflets. Mild mitral valve regurgitation. 4 . Aortic valve leaflets appear structurally normal. Velocities, as well as gradients across the aortic valve are normal. No e vidence of aortic insufficiency. Justin Mills MD Cardiology:Has stopped smoking U jasbir Mills MD Cardiology: B P today: 146/86 P rior BP: 165/79 (06/14/2023) Labs Reviewed: C reat: 0.80 (06/29/2023) C hol: 158 (06/29/2023) HDL: 75 (06/29/2023) LDL: 66 MG/DL (CALC) (06/29/2023) T (06/29/2023) Her updated medication list for this problem includes: Losartan 50 Mg Tablet (Losartan) ..... Take 1 tablet once a day Aspirin 325 Mg Tablet (Aspirin) ..... Take 1 tablet once a day Justin Mills MD Cardiology:The aysha cardona is on a statin. Last LDL 66 Her updated medication list for this problem includes: Rosuvastatin 5 Mg Tablet (Rosuvastatin) ..... Take 1 tablet once a day Justin Mills MD Cardiology:Doing well, ERIKA showe d no significant disease Justin Mills MD Cardiology:liza is on a statin, doing well s/p AIF intervention W ill check ERIKA due to her leisons being 100% in AAA Justin Mills MD Cardiology: B P today: 165/79 P rior BP: 140/70 (01/10/2021) Labs Reviewed: C reat: 0.81 (02/01/2021) C hol: 144 (02/01/2021) HDL: 70 (02/01/2021) LDL: 55 MG/DL (CALC) (02/01/2021) T (02/01/2021) Her updated medication list for this problem includes: Losartan 50 Mg Tablet (Losartan) ..... Take 1 tablet once a day Aspirin 325 Mg Tablet (Aspirin) ..... Take 1 tablet once a day Justin Mills MD Cardiology:The aysha cardona is on a statin H er updated medication list for this problem includes: Rosuvastatin 5 Mg Tablet (Rosuvastatin) ..... Take 1 tablet once a day Justin Mills MD Cardiology:She has q uit smoking cigarettes but uses a vaporizer Justin Mills MD Cardiology follow up :We will repeat labs on her. C harvey crestor. Her updated medication list for this problem includes: Crestor 5 Mg Oral Tablet (Rosuvastatin calcium) ..... One tab. daily Justin Mills MD Cardiology follow up :Neuropathic pain in R foot Justin Mills MD Cardiology follow up : B P today: 140/70 P rior BP: 148/72 (07/12/2020) Labs Reviewed: C reat: 0.73 (04/30/2020) C hol: 216 (04/30/2020) HDL: 67 (04/30/2020) LDL: 130 MG/DL (CALC) (04/30/2020) T (04/30/2020) Her updated medication list for this problem includes: Aspirin 325 Mg Oral Tablet (Aspirin) ..... One tab daily Losartan Potassium 50 Mg Oral Tablet (Losartan potassium) ..... Take 1 tab daily Justin Mills MD Cardiology follow up : S he has started smoking e-cigs in lieu of cigarettes. Justin Mills MD Cardiology follow up :No leg pain or claudication. Will repeat ERIKA in 6 months and continue current meds. Justin Mills MD Cardiology Follow up : R foot, Neuropathic pain. Improved on lyrica. Justin Mills MD Cardiology Follow up : B P today: 148/72 P rior BP: 126/76 (06/14/2020) Her updated medication list for this problem includes: Aspirin 325 Mg Oral Tablet (Aspirin) ..... One tab daily Losartan Potassium 50 Mg Oral Tablet (Losartan potassium) ..... Take 1 tab daily Justin Mills MD Cardiology Follow up : A BI in June shows minimal blockage. Sxs of right foot pain improved on lyrica. Justin Mills MD Cardiology Follow up : S he has started smoking e-cigs in lieu of cigarettes. Justin Mills MD Cardiology follow up :ERIKA today shows minimal blockage. Justin Mills MD Cardiology follow up : B P today: 126/76 P rior BP: 110/60 (05/14/2020) Labs Reviewed: C reat: 0.73 (04/30/2020) C hol: 216 (04/30/2020) HDL: 67 (04/30/2020) LDL: 130 MG/DL (CALC) (04/30/2020) T (04/30/2020) Justin Mills MD Cardiology follow up :The Patient was reencouraged to stop smoking. Justin Mills MD Cardiology follow up :R foot, Neuropathic pain. Will start lyrica 25mg TID and f/u in one month Justin Mills MD Cardiology:The Patie nt was reencouraged to stop smoking. Patient is cutting down Justin Mills MD Cardiology:S/p inter vention to the aorta. revascularization was accomplished to b/l LE, she is doing much better. Her legs are warm and pedal pulses are palpable. She continues to have some numbness on her R foot. Will obtain ERIKA and will f/u with the patient in 1 month. remains on ASA and plavix Justin Mills MD Cardiology New Aysha nt :ERIKA from [place] on 04/20/2020 shows severe arterial occlusive disease b/l. Will proceed to plan AIF with CT angio abd/pelvis/LE. W ill also get LABS: CMP, CBC, Lipid Panel. 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 May need percutaneous or open repair.. Justin Mills MD Cardiology New Aysha nt :Controlled. B P today: 120/72 Her updated medication list for this problem includes: Hydrochlorothiazide 12.5 Mg Oral Tablet (Hydrochlorothiazide) ..... Take 1 tab daily Losartan Potassium 50 Mg Oral Tablet (Losartan potassium) ..... Take 1 tab daily Justin Mills MD Cardiology [place] nt :Patient continues to smoke. Reviewed how smoking contributes to PVD. Justin Mills MD Cardiology New Pat[place] nt :ERIKA from [place] on 04/20/2020 shows severe arterial occlusive disease b/l. Will proceed to plan AIF with CT angio abd/pelvis/LE. W ill also get LABS: CMP, CBC, Lipid Panel Justin Mills MD Date Name CardioIQ Advanced Li pid Panel with Inflammation ([facility]) Complete Echo CardioIQ Advanced Li pid Panel with Inflammation ([facility]) Lipoprotein (a) COMPREHENSIVE METABO LIC PANEL, W/EGFR LIPID PANEL Arterial Duplex Bi-L ower EX Complete Echo Arterial Duplex Bi-L ower EX HEMOGLOBIN A1c CBC (H/H, RBC, INDIC ES, WBC, PLT) LIPID PANEL COMPREHENSIVE METABO LIC PANEL, W/EGFR Arterial Duplex Bi-L ower EX CBC (H/H, RBC, INDIC ES, WBC, PLT) LIPID PANEL COMPREHENSIVE METABO LIC PANEL, W/EGFR Complete Echo CT Angio AIF (Abd, l ower extremities) HISTORY OF PROCEDURES Procedure Date Procedure Name Provider Procedure Notes S tatus Complex e/m visit add on Justin Mills MD completed EKG Justin Mills MD completed EKG Justin Mills MD completed
--- OUTSIDE RECORDS SUMMARY | 2024-12-08 16:42 | XMS_ITS | Patient Health Summary ---
Author Organization [facility] Address [address] [place] [address] Care Team Providers Care Prefabricator Name Role Phone Roel Manzano MD Unavailable [phone] Pcp, Lyndsey Muñoz Primary Care Provider Unav ailable Note from [facility],non-owned Affiliates and Associated Physician Practices is amultiple site organization consisting of ambulatory clinics and hospital sitesin [place], [place], [place] and [place]. This disclosure is being madepursuant to the Care Everywhere program and may not contain all information available regarding this patient. Last updated 18.[facility] Allergies No known active allergies* Cetirizine Hcl,Inactive Medications * Be aware that medications may not be up to date on this document. Alwaysverify current medications with the patient. * amoxicillin (AMOXIL) 500 MG capsule(Started 04/19/2017) Take 1 Cap by mouth 3 times daily Active Problems No known active problems Resolved Problems Problem Noted Date Diagnosed Date Resolved Date Screening for cervical cancer 02/09/2009 03/11/2012 Other screening mammogram 02/09/2009 Social History Tobacco Use Types Packs/Day Years [...] Mass Index 22.96 04/19/2017 2:04 PM CDT Procedures * PAP IG LB CT+GC+HPV HR(Performed 03/11/2012) Performed for Screen for STD (sexually transmitted disease), Routine gynecological examination, Special screening examination for other specified chlamydial diseases, Special screening examination for human papillomavirus (HPV) * PAP IG RFLX HPV ASCU(Performed 12/01/2009) Performed for Routine Gynecological Examination Results * PAP SMEAR IG CT+GC HPV HR (PO REF LAB) (03/11/2012 4:55 PM CDT) Diagnosis [facility] INSURANCE BILL Comment:NEGATIVE FOR INTRAEP ITHELIAL LESION AND MALIGNANCY. Specimen Adequacy [facility] INSURANCE BILL Comment: Satisfactory for evaluation. Endocervical and/or squamous metaplastic cells (endocervical component) are present. Clinician Provided ICD9 [facility] INSURANCE BILL Comment: V70.0 ; Routine general medical examination at health care facility V74.5 ; Screening examination for venereal disease 625.9 ; Unspecified symptom associated with female genital organs V72.31 ; Routine gynecological examination V73.88 ; Special screening examination for other specified chlamydial diseases V73.81 ; Special screening examination, human papillomavirus [HPV] Performed by [facility] INSURANCE BILL Comment:Emily Hatfield, Cytot echnologist (ASCP) Comment . [facility] INSURANCE BILL Note [facility] INSURANCE BILL Comment: The Pap smear is a screening test designed to aid in the detection of premalignant and malignant conditions of the uterine cervix. It is not a diagnostic procedure and should not be used as the sole means of detecting cervical cancer. Both false-positive and false-negative reports do occur. . [facility] CPT Code Automation [facility] INSURANCE BILL Comment: This liquid based ThinPrep(R) pap test was screened with the use of an image guided system. Human papillomavirus High Risk Negative Negative [facility] INSURANCE BILL Comment: This high-risk HPV test [...] CYTYC Thin Prep Vial Resulting Agency Comment [facility] [address] [place] [phone] Claribel Wagner APRN-AQUATIC CENTRE MANAGER LAB - PATHOLOGY/C YTOLOGY ORDERABLES [facility] INSURANCE BILL * PAP SMEAR IG RFLX HPV ASCU (PO REF LAB) (12/01/2009 5:53 PM HAND OUTSIDE CUTTER) Diagnosis [facility] INSURANCE BILL Comment:NEGATIVE FOR INTRAEP ITHELIAL LESION AND MALIGNANCY. Specimen Adequacy [facility] INSURANCE BILL Comment: Satisfactory for evaluation. Endocervical and/or squamous metaplastic cells (endocervical component) are present. Clinician Provided ICD9 [facility] INSURANCE BILL Comment:V72.31 ; Routine top hat body maker ecological examination Performed by [facility] INSURANCE BILL Comment:Yolanda Hess, Cyto technologist (ASCP) Comment . [facility] INSURANCE BILL Note [...] the use of an image guided system. Reflex [facility] INSURANCE BILL Comment: The HPV DNA reflex criteria were not met with this specimen result therefore, no HPV testing was performed. . MICROSCOPIC CYTOLOGIC EXAMINATION OF SMEAR OF SPECIMEN FROM FEMALE GENITAL TRACT PREPARED USING PAPANICOLAOU TECHNIQUE / Unknown 12/01/2009 5:53 PM HAND OUTSIDE CUTTER 12/02/2009 4:39 AM HAND OUTSIDE CUTTER Narrative [facility] INSURANCE BILL - 12/04/2009 8:09 PM HAND OUTSIDE CUTTER No. of containers..01 CYTYC Thin Prep Vial Resulting Agency Comment [facility] [place] [address] [place] [phone] Roel Manzano MD LAB - PATHOLOGY/CYT OLOGY ORDERABLES [facility] INSURANCE BILL Care Teams Prefabricator Relationship Specialty [place] [id number] [facility] [address] [facility] [address] [place], [place] [id number] PCP - OBDON 02/09/09 PcpLyndsey PCP - General 04/27/23
--- OUTSIDE RECORDS SUMMARY | 2024-12-08 16:42 | XMS_ITS | Clinical Summary ---
Author Organization [facility] Address [address] [place] [address] Care Team Providers Care Communication Center Operator Name Role Phone Roel Manzano MD Unavailable [phone] Pcp, Lyndsey Muñoz Primary Care Provider Unav ailable Source Comments [facility],non-owned Affiliates and Associated Physician Practices is amultiple site organization consisting of ambulatory clinics and hospital sitesin [place], [place], [place] and [place]. This disclosure is being madepursuant to the Care Everywhere program and may not contain all information available regarding this patient. Last updated 18.[facility] Allergies No known active allergies Medications * [...] screening mammogram 02/09/2009 Overview (02/09/2009): 07/24/08 NEG Family History Medical History Relation Name Comments Cancer Maternal Aunt breast and cer vix Diabetes Maternal Grandmother Cancer Mother cervical Cancer Other cousin breast Relation Name Status Comments Maternal Aunt Maternal Grandmother Mother Other cousin Social History Tobacco Use Types Packs/Day Years [...] 04/19/2017 2:04 PM CDT Plan of Treatment Health Maintenance Due Date Last Done Comments BONE DENSITY TESTING 1960 COLOGUARD (AGES 45-75) - COL ON CA SCREENING 1960 COLON MONITORING 1960 COLONOSCOPY - COLON CA SCREENING 1959 CT COLONOGRAPHY - COLON CA SCREENING 1960 Colorectal Cancer Screening 1960 FIT - COLON CA SCREENING 1960 FLEX SIG - COLON CA SCREENING 1960 MAMMOGRAM 1960 HIV SCREENING 1974 HEPATITIS C SCREENING 02/01/1977 DTAP/TDAP/TD VACCINES (1 - Tdap) 1978 LUNG CANCER SCREENING 2009 PNEUMOCOCCAL VACCINE 50+ (1 of 1 - PCV) 2009 ZOSTER VACCINE (1 of 2) 2009 LIPID TESTING 03/29/2010 03/29/2005 (Previously completed) PAP SMEAR 03/11/2015 03/11/2012, 12/01/2009 COVID-19 VACCINE ( - 2023-2 5 season) 2024 INFLUENZA VACCINE (#1) 2024 DEPRESSION SCREENING 10/01/2024 Respiratory Syncytial Virus (RSV) Vaccine Pt: or over 60 yrs (1 - 1-dose 75+ series) 2034 HEPATITIS B VACCINE Aged Out No longe r eligible based on patient's age to complete this topic HIB VACCINE Aged Out No longer eligi ble based on patient's age to complete this topic HPV VACCINE Aged Out No longer eligi ble based on patient's age to complete this topic MENINGOCOCCAL (Group B) VACCINE Aged Out No longer eligible b ased on patient's age to complete this topic MENINGOCOCCAL VACCINE Aged Out No windy lucy eligible based on patient's age to complete this topic Goals Goal Patient Goal Type Associated Problems Recent Progress Patient-Stated? Author Quit smoking / using tobacco Lifestyle Not on track(2016 2:06 PM CDT) Alicja Schaefer MA Note: Where can I go for support and more information? There are many ways to quit smoking. Some may work better for you than others. Your caregiver can help you find the best plan to quit. [employer] Phone: 5-960-PBKK-NOW ( ) www.[employer] Phone: Phone: www.lung.org Instant Rewards [...] that your body is healing. -Taken from www.Nanosp[place].gov Long?term Rewards of Quitting Tobacco use in [...] 13 other kinds of cancer -Taken from www.[place]osp[place].gov Tips if you slip Don't be discouraged [...] papillomavirus [HPV] Performed by [facility] INSURANCE BILL Comment:Waleska Michaelt echnologist (ASCP) Comment . [facility] INSURANCE BILL [...] CYTYC Thin Prep Vial Resulting Agency Comment [address] [phone] Claribel Wagner GLAZE HANDLER-DOUGHNUT BATTER MIXER LAB - PATHOLOGY/C YTOLOGY ORDERABLES [facility] INSURANCE BILL from Last 3 Months or Most Recently Relevant to Health Maintenance Advance Directives Documents on File Type Date Recorded Patient Engineering Technologist Expl anation Adv Directive/Living Will/POA 11/22/2009 Adv Directive/Living Will/POA 11/22/2009 Care Teams Communication Center Operator Relationship Specialty Start [place] [address] [address] PCP - OBDON 02/09/09 PcpLyndsey PCP - General 04/27/23
== END 2024-12-08 14:20 | disposition home or self-care (01) ==
PROVIDERS: PCP Family Medicine; Visit Provider Student in an Organized Health Care Education/Training Program
DX: Z12.2 Encounter for screening for malignant neoplasm of respiratory organs (principal); Z87.891 Personal history of nicotine dependence
CPT/HCPCS: 71271

== ENCOUNTER 2025-07-09 09:08 | Outpatient (CLI) | payer MEDICARE, SELFPAY ==
--- NOTE | ~2025-07-09 | DEXA_ITS ---
Bone Density Report Name: KORINA VELASQUEZ Age: 65 Sex: Female Ethnicity: White Date of : 1960 Indication: postmenopausal; screening for osteoporosis; Referring Provider: ADWOA CASE Study: Bone densitometry was performed. Exam Date: July 09, 2025 Accession number: [id number] Bone Density: Region BMD T-score Z-score Classification AP Spine(L1-L4) 0.923 -1.1 0.7 Osteopenia Femoral Neck (Left) 0.667 -1.6 -0.1 Osteopenia Total Hip (Left) 0.817 -1.0 0.3 Normal Femoral Neck (Right) 0.740 -1.0 0.6 Normal Total Hip (Right) 0.811 -1.1 0.2 Osteopenia Total Hip Mean 0.814 -1.1 0.3 Osteopenia World Health Organization criteria for BMD impression classify patients as: Normal (T-score at or above -1.0), Osteopenia (T-score between -1.0 and -2.5), or Osteoporosis (T-score at or below -2.5). 10-year Fracture Risk(1): Major Osteoporotic Fracture 11% Hip Fracture 1.7% Reported Risk Factors: [place] (), Neck BMD=0.667, BMI=28.2, alcohol use (1) FRAX(R) Version 3.08. Fracture probability calculated for an untreated patient. Fracture probability may be lower if the patient has received treatment. Previous Exams: -- Region Exam Age BMD T-score BMD Change BMD Change Date g/cm2 vs Baseline vs Previous -- AP Spine (L1-L4) 07/09/2025 65 0.923 -1.1 -4.2%* -4.2%* 06/08/2022 62 0.964 -0.8 Total Hip(Left) 07/09/2025 65 0.817 -1.0 -0.3% -0.3% 06/08/2022 62 0.820 -1.0 Total Hip(Right) 07/09/2025 65 0.811 -1.1 -4.2%* -4.2%* 06/08/2022 62 0.847 -0.8 -- *Denotes significance at 95% confidence level, LSC for AP Spine = 0.022 g/cm2, LSC for Total Hip = 0.027 g/cm2 Clinical Information Provided by Patient: Has 3 or more alcoholic drinks per day Patient maximum height was 64 Menopause Age: 49 Drinks caffeinated beverages Onset of menses at age 13 Number of children 2 Impression: The patient has low bone mass, based on the Left Femoral Neck T-score. The patient has an estimated ten-year risk of hip fracture of 1.7% and an estimated ten-year risk of major fracture of 11%, based on the WHO FRAX algorithm. The patient has risk factors, including: excessive alcohol use. The BMD for the AP Spine (L1-L4) decreased, changing by -4.2% since the last DXA exam. The BMD for the Total Hip(Right) decreased, changing by -4.2% since the last DXA exam. Discussion: BONE DENSITY IS LOW AT ONE OR MORE SKELETAL SITES. This patient's lowest T-score is low at one or more skeletal sites. It meets the World Health Organization's (WHO) criteria for ?low bone mass? (T-score between -1.0 and -2.5). The patient's 10-year risk of fracture as calculated by FRAX is less than the threshold where pharmacological therapy is recommended by the National Osteoporosis Foundation (NOF). However, all treatment decisions require clinical judgment and consideration of individual patient factors, including patient preferences, comorbidities, previous drug use, risk factors not captured in the FRAX model (e.g., frailty, falls, vitamin D deficiency, increased bone turnover, interval significant decline in bone density) and possible under or overestimation of fracture risk by FRAX. The patient should follow a healthful lifestyle (good nutrition with adequate calcium and vitamin D, and appropriate weight-bearing exercise). Follow-Up: Consider repeating this study in 2 years to reassess this patient's status, or sooner if there is some new clinical indication. Reported by: JAQUI on 07/09/2025 10:14:00 AM. Reviewed, dictated and finalized at location A.
== END 2025-07-09 09:09 | disposition home or self-care (01) ==
PROVIDERS: PCP Family Medicine; Visit Provider Student in an Organized Health Care Education/Training Program
DX: Z78.0 Asymptomatic menopausal state (principal); M85.88 Other specified disorders of bone density and structure, other site; M85.852 Other specified disorders of bone density and structure, left thigh; M85.851 Other specified disorders of bone density and structure, right thigh
CPT/HCPCS: 77080

== ENCOUNTER 2025-07-21 09:30 | Outpatient (CLI) | payer MEDICARE, SELFPAY ==
--- NOTE | ~2025-07-21 | MM_ITS ---
EXAMINATION: screening [facility] BI w paulie INDICATION: Asymptomatic, referred for screening mammogram COMPARISON: 09/13/2023 through 12/17/2018 TECHNIQUE: Digital Breast Tomosynthesis CC, MLO views of Both breasts were obtained with computer-aided detection to assist in interpretation of the study. FINDINGS: There are scattered areas of fibroglandular density. There is a focal asymmetry containing calcifications in the superior lateral left breast at posterior third. Elsewhere, there are no mammographic features of malignancy. IMPRESSION: 1. Left breast Focal asymmetry with calcifications. 2. No evidence of malignancy in the Right breast. RECOMMENDATION: Left breast Diagnostic mammogram with true lateral, appropriate spot compression views and an ultrasound if needed. BI-RADS Category 0: Incomplete: Needs additional imaging evaluation. Reviewed, dictated and finalized at location B. IMPRESSION: 1. Left breast Focal asymmetry with calcifications. 2. No evidence of malignancy in the Right breast. RECOMMENDATION: Left breast Diagnostic mammogram with true lateral, appropriate spot compressio n views and an ultrasound if needed. BI-RADS Category 0: Incomplete: Needs additional imaging evaluation.
== END 2025-07-21 09:31 | disposition home or self-care (01) ==
LOC: MICIMG 09:30
PROVIDERS: PCP Family Medicine; Visit Provider Student in an Organized Health Care Education/Training Program
DX: Z12.31 Encounter for screening mammogram for malignant neoplasm of breast (principal); R92.8 Other abnormal and inconclusive findings on diagnostic imaging of breast
CPT/HCPCS: 77063; 77067

== ENCOUNTER 2025-07-29 08:35 | Outpatient (CLI) | payer MEDICARE, SELFPAY ==
--- NOTE | ~2025-07-29 | MM_ITS ---
EXAMINATION: MM diagnostic cristiano LT w paulie HISTORY: Follow-up left breast calcifications TECHNIQUE: Additional 3-D tomosynthesis images of the left breast were performed and synthetic 2-D images were generated. CAD analysis was submitted and interpreted. COMPARISON: Comparison to multiple prior studies sequentially, with oldest reviewed study dated 12/17/2018. BREAST PARENCHYMAL COMPOSITION: Not dense: There are scattered areas of fibroglandular density. FINDINGS: There are developing clustered indeterminate calcifications in the upper outer quadrant of the left breast, posterior third.There are no suspicious masses or areas of architectural distortion. No skin thickening. IMPRESSION: 1. Developing clustered indeterminate left breast calcifications, upper outer quadrant. 2. Stereotactic left breast biopsy recommended. BI-RADS category 4, suspicious findings. Reviewed, dictated and finalized at location B. IMPRESSION: 1. Developing clustered indeterminate left breast calcifications, upper outer q uadrant. 2. Stereotactic left breast biopsy recommended. BI-RADS category 4, suspicious findings.
== END 2025-07-29 08:36 | disposition home or self-care (01) ==
LOC: MICIMG 08:35
PROVIDERS: PCP Family Medicine; Visit Provider Student in an Organized Health Care Education/Training Program
DX: R92.8 Other abnormal and inconclusive findings on diagnostic imaging of breast (principal)
CPT/HCPCS: 77061; 77065; G0279

== ENCOUNTER 2025-08-18 08:50 | Outpatient (CLI) | payer MEDICARE, SELFPAY ==
--- NOTE | ~2025-08-18 | MM_ITS ---
AutoText: MM stereotactic specimen LT, MM stereotactic bx LT CLINICAL HISTORY: 65-year-old female with developing clustered indeterminate left breast calcifications upper outer quadrant presents for stereotactic core needle biopsy procedure. PROCEDURE: Stereotactic breast biopsy. The patient was brought into the stereotactic suite. A time-out procedure was performed. Preliminary images of the left breast were obtained to localize the calcifications. The area was then prepped and draped in the usual sterile fashion. 1% lidocaine was administered to the superficial soft tissues and 1% lidocaine without epinephrine was administered to the deeper soft tissues for local anesthesia. A joycelyn was made in the skin and the 9 gauge Brevera biopsy needle was inserted through the joycelyn and localized to the calcifications with confirmation by mammography. Multiple biopsy specimens were obtained. Images of the biopsy specimens demonstrate numerous calcifications corresponding with the suspicious calcifications seen on the mammogram. A Chazy Mckay butterfly marker was placed in the biopsy site at the end of the procedure. Pressure was held at the site of biopsy and entry site for the needle until hemostasis was achieved. The patient tolerated the procedure well with no immediate post procedure complications. The biopsy specimens were sent to pathology for evaluation. Mammograms of the left breast in the craniocaudal and true lateral projections demonstrate the microclip in the biopsy site. IMPRESSION: Technically successful stereotactic biopsy of left breast calcifications. The patient tolerated the procedure well with no immediate post procedure complications. Pathology results pending Reviewed, dictated and finalized at location B. L ENGINE MECHANIC IMPRESSION: Technically successful stereotactic biopsy of left breast calcifica tions. The patient tolerated the procedure well with no immediate post procedur e complications. Pathology results pending
--- NOTE | 2025-08-18 10:59 | S_PTH ---
PATIENT: Brooklyn Marsh LOC: [facility] U#:[id number] AGE/SX: 65/F ROOM: RE08/18/[address]: Yvonne Gordon MD : 1960 BED: DIS: 08/18/2025 SPEC #: [id number] RECD: 08/18/25 11:26 STATUS: ALEX RELuis Fernando #: [id number] GEN: 08/18/25 10:[address]: Yvonne Gordon DEPT: [facility] Surgical RECD BY: Mile Brady ENTERED: 08/18/25 11:30 SP TYPE: Surgical OTHR DR: Hunter Miller MD Tissues: A - Breast Biopsy B - Breast Biopsy C - Breast Biopsy D - Breast Biopsy E - Breast Biopsy F - Breast Biopsy G - Breast Biopsy H - Breast Biopsy I - Breast Biopsy J - Breast Biopsy K - Breast Biopsy Procedures: Hematoxylin and Eosin Stain Gross and Microscopic Level 4
== END 2025-08-18 08:51 | disposition home or self-care (01) ==
LOC: ANHFOHIMG 08:51
PROVIDERS: PCP Family Medicine; Visit Provider Surgery
DX: R92.8 Other abnormal and inconclusive findings on diagnostic imaging of breast (principal); R92.0 Mammographic microcalcification found on diagnostic imaging of breast
CPT/HCPCS: 19081; 88305